=== PATIENT | female | born 1970 | race Caucasian/White ===

== ENCOUNTER 2025-02-09 10:07 | Emergency (ER) | payer BC ==
[~2025-02-09] VITALS: Ht 157.5 cm; Wt 48.0 kg
[~2025-02-09 10:07] MED LIST: ALPR0.5T PO; ASPI-867 PO; ATOR40TA70 PO; CLOP-31 PO; ISOSORBIDE PO; JANUMET PO; LISINOPRIL PO; METO50TA95 PO; SERTRALINE PO; WARFARIN PO
[2025-02-09 10:17] VITALS: O2SAT 100
[2025-02-09 11:09] LABS: BASOPHILS % 1.2 % (0.0-2.0); EOSINOPHILS % 6.1 % (0.0-5.0); HEMATOCRIT. 43.1 % (36.0-48.0); HEMOGLOBIN. 14.7 g/dL (12.0-16.0); LYMPHOCYTES % 27.9 % (20.0-50.0); MEAN PLATELET VOLUME 8.7 fl (7.4-10.4); MONOCYTES % 7.8 % (2.0-8.0); NEUTROPHILS % 57.0 % (40.0-76.0); PLATELET 186 x1000/uL (130-400); RED BLOOD CELL COUNT 4.69 mill/uL (4.2-5.4); RED CELL DISTRIBUTION WIDTH 12.6 % (11.6-14.6)
[2025-02-09 11:28] LABS: CREATININE 0.8 mg/dL (0.6-1.0); UREA NITROGEN BLOOD 15 mg/dL (9-23)
[2025-02-09 11:30] LABS: ASPARTATE AMINOTRANSFERASE 17 IU/L (<34); BILIRUBIN DIRECT 0.1 mg/dL (<=3.0)
[2025-02-09 11:31] LABS: BILIRUBIN TOTAL 0.4 mg/dL (0.1-1.0); PROTEIN TOTAL 7.3 g/dL (6.0-8.3)
[2025-02-09 11:34] LABS: HCG SCREEN NEGATIVE
[2025-02-09 12:09] LABS: CLARITY URINE CLEAR (CLEAR); COLOR URINE YELLOW (YELLOW); GLUCOSE URINE 3+ (NEGATIVE); PH URINE 6.0 (4.5-8.0); PROTEIN URINE NEGATIVE (NEGATIVE); SPECIFIC GRAVITY URINE 1.013 (1.005-1.030)
[2025-02-09 12:10] LABS: KETONES URINE NEGATIVE (NEGATIVE); LEUKOCYTE ESTERASE URINE NEGATIVE (NEGATIVE); NITRITE URINE NEGATIVE (NEGATIVE); OCCULT BLOOD URINE NEGATIVE (NEGATIVE); UROBILINOGEN URINE 0.2 E.U./dL (0.2-1.0)
[2025-02-09 12:16] LABS: SQUAMOUS EPITHELIAL CELL URINE 3+ /lpf (RARE/1+); YEAST URINE 1+
[2025-02-09 12:17] LABS: BACTERIA URINE 1+; RBC URINE 0-2 /hpf (0-2); WBC URINE 0-2 /hpf (0-2)
[2025-02-09] MEDS ORDERED: MICO45CR16 VG (12:29)
[2025-02-09] MEDS ORDERED: FLUC100T MT (12:56)
[2025-02-09 13:02] VITALS: BP 137/82; PULSE 67; RESP 13; TEMP 37.1; O2SAT 100
== END 2025-02-09 13:03 | disposition home or self-care (01) ==
LOC: ER 10:21
DX: B37.0 Candidal stomatitis (principal); E11.9 Type 2 diabetes mellitus without complications; E78.00 Pure hypercholesterolemia, unspecified; I10 Essential (primary) hypertension; Z79.899 Other long term (current) drug therapy; F32.A Depression, unspecified
CPT/HCPCS: 36415; 74176; 80048; 80076; 81003; 84703; 85025; 87015; 87045; 87427; 87449; 99284